=== PATIENT | female | born 1990 | race African-American/Black ===

== ENCOUNTER 2022-04-06 01:10 | Emergency (ER) | payer OTHER, SELFPAY ==
[2022-04-06] MEDS ORDERED: Dicyclomine 20 MG/2 ML VIAL ONE (01:56)
[2022-04-06] MEDS ORDERED: Ondansetron PF 4 MG/2 ML Vial ONE (01:56)
[2022-04-06] MEDS ORDERED: Acetaminophen 500 MG TAB ONE (01:57)
[2022-04-06 02:07] LABS: BHCG - Serum Negative (NEGATIVE); Pregs Control Background? CLEAR/WHITE (CLR/WHITE); Pregs Control Bar Appear? YES (CONTROL BAR)
== END 2022-04-06 02:55 | disposition home or self-care (01) ==
LOC: CSHERS 01:10
DX: R11.2 Nausea with vomiting, unspecified (principal); R19.7 Diarrhea, unspecified; F17.210 Nicotine dependence, cigarettes, uncomplicated
CPT/HCPCS: 84703; 96372; 96374; J0500; J2405